=== PATIENT | female | born 1925 | race Caucasian/White ===

== ENCOUNTER 2016-07-04 10:16 | Emergency (ER) | payer OTHER ==
[2016-07-04 10:26] VITALS: BP 163/69
--- NOTE | 2016-07-04 11:00 | Diag Imaging Result Document ---
PROCEDURE NAME: KNEE 3 VIEWS LEFT - 07/04/2016 LEFT KNEE, 3 VIEWS: FINDINGS: There is some osteophyte formation laterally. There is also osteophyte formation in the medial femoral condyle and patellofemoral joint. There is subchondral cyst formation generally and there is some subsidence of the cortex anteriorly in the medial femoral condyle. IMPRESSION: Severe osteoarthritis.
[2016-07-04] MEDS ORDERED: NORCO-7.5 PO ONE (11:06)
--- NOTE | 2016-07-04 11:26 | PROVIDER DOCUMENTATION ---
HPI-Musculoskeletal Pain/Inj - GENERAL Chief Complaint: Fall Stated Complaint: FALL/EXTREMITY INJURY Time Seen by Provider: 07/04/16 10:28 Source: patient - HX OF PRESENT ILLNESS-MUSKULOSKELTAL Nature of Presenting Problem: Pt is 89 y/o F presents to the ED with post fall. Pt's daughter states Pt fell early this am due to losing balance. Pt's daughter states Pt can not walk due to pain. Pt's daughter denies F and chills for Pt. Quality of Pain: reports: aching Severity in ED: mild Onset/Duration: this morning Timing: still present Any recent injury?: Yes (fall) Locality of Occurance: Home Similar Symptoms Previously?: No Recently seen or treated by another doctor?: No - FALL INJURY Location of Pain/Injury: reports: lower extremity (L knee) Pain Radiation: reports: no radiation Reason for Fall: reports: lost balance Symptoms prior to fall:: reports: none Loss of Consciousness: no loss of consciousness Injury Associated Symptoms: reports: joint pain (L knee), unable to bear weight (L), weakness, trouble walking. denies: arm pain, back/neck pain, chest pain, diaphoresis, dizziness, headaches, muscle aches, nausea, puncture wound, shortness of breath, sensory/motor loss, snap/crack/pop sensation, pain with inspiration, vomiting Review of Systems - Adult - REVIEW OF SYSTEMS - ADULT Constitutional: denies: chills, fever Eyes: denies: blurred vision, double vision Ears, Nose, Mouth & Throat: denies: ear pain, nose pain, throat pain Cardiovascular: denies: chest pain, heart murmur, irregular heart rate Respiratory: denies: cough, shortness of breath, wheezing Gastrointestinal: denies: abdominal pain, diarrhea, nausea, vomiting Genitourinary: denies: dysuria, hematuria Musculoskeletal: reports: other (L knee pain). denies: bone pain, joint pain, neck pain Integumentary: denies: hives, itching Neurological: denies: dizziness/vertigo, headache/migraines Psychiatric: reports: no symptoms reported Endocrine: reports: no symptoms reported Hematologic/Lymphatic: reports: no symptoms reported Allergic/Immunologic: reports: no symptoms reported All Other Systems: Reviewed and Negative Past History - Adult - PAST MEDICAL HISTORY-ADULT Review of Records: reports: Nursing Assessment Review, Medications Reviewed, Social history reviewed & non-contributory. Major Childhood Illnesses: reports: denies history Cardiovascular: reports: CHF, HTN, pacemaker Respiratory: reports: denies history Gastrointestinal: reports: denies history Obstetrical/Gynecological: reports: denies history Genitourinary: reports: denies history Musculoskeletal: reports: denies history Neurological: reports: Alzheimer's, dementia Endocrine/Immune: reports: Diabetes, thyroid disorder Other Conditions: reports: denies history - PRIOR SURGERIES/PROCEDURES Surgical/Procedure History: reports: pacemaker, hysterectomy, other ( thyroidectomy) - IMMUNIZATION STATUS Childhood Immunizations: See Nurse Assessment Flu Vaccine: See Nurse Assessment - FAMILY HISTORY Family History: reviewed, not pertinent - SOCIAL HISTORY Smoking: quit greater than 1 year, cigarettes Substance Use: denies Living Situation: care facility Physical Exam-Injury Related - Physical Exam-Injury Related Initial Vital Signs Reviewed: Yes General Appearance: appears well, alert, no apparent distress Eyes: PERRL/EOMI, pink conjunctivae, fundi clear, no AV nicking Head, Ears, Nose, Mouth & Throat: normocephalic/atraumatic, moist mucous membranes, normal ENT inspection, TMs normal, pharynx normal Neck: non-tender, full range of motion, supple, normal inspection Respiratory: chest non-tender, lungs clear, normal breath sounds, no pleuratic chest pain, no respiratory distress, no accessory muscle use Cardiovascular: normal peripheral pulses, regular rate, rhythm, no edema, no gallop, no JVD, no murmur Peripheral Pulses: radial (R): 2+, radial (L): 2+, dorsalis-pedis (R): 2+, dorsalis-pedis (L): 2+ Abdominal Exam: normal bowel sounds, non tender, soft, no organomegaly, no pulsatile mass Lymphatic: no adenopathy Back Exam: normal inspection, no CVA tenderness, no vertebral tenderness Extremity: normal range of motion, non-tender, no pedal edema, no calf tenderness, swelling (L lower leg) Integumentary: normal color, warm/dry Neurologic: residential program director II-XII nml as tested, grossly normal, no motor/sensory deficits Psych/Mental Status: normal mood/affect, normal thought content, normal thought process, oriented x 3 Progress - PLAN OF CARE/RESULTS Progress/Plan/Lab Results: Orders Category Date Time Status Finger Stick Blood Sugar (ED) DIRECTED Care 07/04/16 11:06 Active KNEE 3 VIEWS LEFT [RAD] Stat Exams 07/04/16 10:29 Draft UA [URINALYSIS PL W/POSS RFLX CULT] [URINALYSIS] Stat Lab 07/04/16 11:06 Uncollected Hydrocodone/APAP 7.5 mg/325 mg [[place]-7.5] Med 07/04/16 11:06 Discontinued 1 each PO NOW ONE Venous U/S Left Leg [CV] Stat Ther 07/04/16 11:06 Ordered Vital Signs - 24 hr 07/04/16 10:22 Temperature 97.8 F Pulse Rate 66 Respiratory 18 Rate Blood Pressure 163/69 O2 Sat by Pulse 100 Oximetry Laboratory Tests 07/04/16 11:24 Urine Source CATH Urine Color YELLOW Urine Clarity CLEAR Urine pH 6.0 Ur Specific [place] 1.015 Urine Protein TRACE A Urine Ketones NEGATIVE Urine Blood NEGATIVE Urine Nitrite NEGATIVE Urine Bilirubin NEGATIVE Urine Urobilinogen NORMAL Urine Microscopic RBC Not Reportable Urine WBC NEGATIVE Ur Epithelial Cells <10 Urine Glucose NEGATIVE - XRAY 1 XRAY: Left XRAY Study: Knee Impression: Abnormal XRAY Interpretation: severe OA - ULTRASOUND (By Radiology) 1 US Study: other (L leg - Venous) Impression: Normal US Results: negative for DVT verbal from [facility] Departure - Departure Time of Disposition Order: 13:03 DIAGNOSIS: Edema of left lower extremity Left knee sprain Qualifiers: Encounter type: initial encounter Involved ligament of knee: unspecified ligament Qualified Code(s): S83.92XA - Sprain of unspecified site of left knee, initial encounter Disposition: HOME 01 Certified Medical Emergency: Emergent Condition: Stable Additional Instructions: ED Follow Up Instructions: You have been treated by a care provider in the Emergency Department. These instructions are being provided to you so you can have an understanding of how to care for yourself upon discharge. Upon discharge from the Emergency Department, you are responsible for making arrangements for follow-up care by a physician of your choice. Take all prescribed medications as directed. Return to the Emergency Department immediately for any new or worsening symptoms. You may call the Physician Referral phone number at [phone] to obtain a list of Physicians who are taking new patients. Referrals: Scottie Hawkins MD [Primary Care Provider] - Attestation - Scribe Verification/Attestation Scribe:: Joyce Baptiste Acting as Scribe for:: Hira George Scribe documention review:: This chart was documented by a scribe and accurately reflects the service the provider performed and the decisions made by the provider.
[2016-07-04 11:39] LABS: URINE CULTURE PL NEEDED? NO; URINE SOURCE CATH
[2016-07-04 11:51] LABS: BILIRUBIN URINE NEGATIVE (NEGATIVE); BLOOD URINE NEGATIVE (NEGATIVE); CLARITY CLEAR (CLEAR); COLOR YELLOW; GLUCOSE URINE NEGATIVE (NEGATIVE); LEUKOCYTES URINE NEGATIVE (NEGATIVE); NITRITE URINE NEGATIVE (NEGATIVE); PROTEIN URINE TRACE mg/dL (NEGATIVE); SP GRAVITY URINE 1.015; UROBILINOGEN URINE NORMAL
[2016-07-04 12:02] LABS: URINE EPITHELIAL CELLS <10 /HPF (<10)
--- NOTE | 2016-07-05 07:13 | Extremity Venous Study ---
PROCEDURE NAME: Venous U/S Left Leg - 07/04/2016 VENOUS ULTRASOUND OF THE LEFT LOWER EXTREMITY: FINDINGS: The deep veins of the left lower extremity are compressible and demonstrate normal color Doppler flow with augmentation. There are no thrombi demonstrated. No abnormal fluid collections are demonstrated. IMPRESSION: No evidence of deep venous thrombosis.
== END 2016-07-04 13:29 | disposition home or self-care (01) ==
LOC: P.ED 10:16
DX: S83.92XA Sprain of unspecified site of left knee, initial encounter (principal); R60.9 Edema, unspecified; M25.562 Pain in left knee; I50.9 Heart failure, unspecified; I10 Essential (primary) hypertension; E11.9 Type 2 diabetes mellitus without complications; E07.9 Disorder of thyroid, unspecified; Z95.0 Presence of cardiac pacemaker; Z79.899 Other long term (current) drug therapy; G30.9 Alzheimer's disease, unspecified; F02.80 Dementia in other diseases classified elsewhere, unspecified severity, without behavioral disturbance, psychotic disturbance, mood disturbance, and anxiety; Z87.891 Personal history of nicotine dependence; W19.XXXA Unspecified fall, initial encounter
CPT/HCPCS: 81001; 82948; 93971; 99284; P9612

== ENCOUNTER 2016-08-27 16:24 | Inpatient (IN) ==
[2016-08-27 17:07] LABS: UR AMPHETAMINES QUAL NONE DETECTED (NONE DETECT); UR BARBITUATES QUAL NONE DETECTED (NONE DETECT); UR BENZODIAZEPIN QUAL NONE DETECTED (NONE DETECT); UR CANNABINOIDS QUAL NONE DETECTED (NONE DETECT); UR COCAINE QUAL NONE DETECTED (NONE DETECT); UR MDMA QUAL NONE DETECTED (NONE DETECT); UR METHADONE QUAL NONE DETECTED (NONE DETECT); UR METHAMPHETAMINE QUAL NONE DETECTED (NONE DETECT); UR OPIATES QUAL NONE DETECTED (NONE DETECT); UR OXYCODONE QUAL NONE DETECTED (NONE DETECT); UR PCP QUAL NONE DETECTED (NONE DETECT); UR TCA QUAL NONE DETECTED (NONE DETECT)
--- NOTE | 2016-08-27 17:07 | EKG Report ---
Test Performed on : 08/27/2016 4:53:13 PM Test Reason : med clearance Blood Pressure : / mmHG Vent. Rate : 065 BPM Atrial Rate : 065 BPM P-R Int : 160 ms QRS Dur : 084 ms QT Int : 422 ms P-R-T Axes : 081 044 019 degrees QTc Int : 438 ms Atrial-paced rhythm in a pattern of bigeminy. Septal infarct (cited on or before 16-OCT-2010) Abnormal ECG When compared with ECG of 16-OCT-2010 11:24, No significant change was found Unconfirmed Result
[2016-08-27 17:15] LABS: BILIRUBIN URINE 1+ (NEGATIVE); BLOOD URINE 1+ (NEGATIVE); CLARITY VERY CLOUDY (CLEAR); COLOR YELLOW; GLUCOSE URINE NEGATIVE (NEGATIVE); LEUKOCYTES URINE 2+ (NEGATIVE); NITRITE URINE POSITIVE (NEGATIVE); PROTEIN URINE 2+(100 mg/dL) mg/dL (NEGATIVE); URINE WBC TNTC /HPF (<10); UROBILINOGEN URINE 1+(1 mg/dL)
[2016-08-27 17:16] LABS: URINE CAST NONE SEEN /LPF; URINE CRYSTAL NONE SEEN /HPF; URINE CULTURE PL NEEDED? YES; URINE EPITHELIAL CELLS >10 /HPF (<10); URINE SOURCE CLEAN CATCH
[2016-08-27 17:35] LABS: MANUAL DIFF NEEDED? NO
[2016-08-27 17:40] LABS: BASO% 0.7 % (0.0-0.8); EOS# 0.11 X1000 (0.0-0.7); EOS% 1.6 % (0.0-10.0); HEMATOCRIT 42.2 % (37.0-47.0); HEMOGLOBIN 14.1 g/dL (12.0-16.0); IMM GRAN# 0.02 X1000 (0.0-0.04); IMM GRAN% 0.3 % (0.0-0.5); LYMPH# 1.77 X1000 (1.2-3.4); LYMPH% 25.3 % (20.5-51.1); MCH 30.9 PG (27-31); MCHC 33.4 g/dL (33-37); MCV 92.5 FL (81-99); MONO# 0.57 X1000 (0.11-0.59); MONO% 8.2 % (1.7-9.3); MPV 13.3 FL (7.4-10.4); NEUT% 63.9 % (42.2-75.2); PLT 135 X1000 (130-400); RBC 4.56 XMIL (4.2-5.4)
[2016-08-27 18:04] LABS: ALBUMIN 4.1 g/dL (3.5-5.0); CALCIUM 9.1 mg/dL (8.8-10.2); POTASSIUM 4.2 mmol/L (3.5-5.1); TOTAL BILIRUBIN 0.7 mg/dL (0.20-1.00); TOTAL PROTEIN 7.5 g/dL (6.3-8.3)
[2016-08-27] MEDS ORDERED: NS 1,000 ML IV ONE (20:30)
[2016-08-27] MEDS ORDERED: LIBRIUM PO ONE (20:30)
[2016-08-28] MEDS ORDERED: ZOFRAN IV PRN (06:49)
[2016-08-28] MEDS: ROCEPHIN 1 GM/NS 1 GM/50 ML IVPB IV SCH (09:19)
[2016-08-28] MEDS: LIBRIUM PO SCH ×3 (09:20→21:17)
[2016-08-28] MEDS: M.V.I.-12 10 ML, FOLIC ACID 1 MG, MAGNESIUM SULFATE 1 GM, THIAMINE 100 MG in NS 1,000 ML IV SCH (09:20)
[2016-08-28] MEDS: NS 1,000 ML IV SCH ×2 (09:24→11:28)
--- NOTE | 2016-08-28 11:04 | PROGRESS NOTE ---
DATE: 08/28/2016 SUBJECTIVE: Patient is confused, disoriented this morning. She is not sure why she is in the hospital. She would like to talk to whoever put her "in this place." States "I am most disappointed." PHYSICAL: Vital Signs: Temperature 97.8, pulse 68, respiratory rate 20, BP 154/78 to 107/69, saturations 100% on room air. General: Patient is awake, alert, oriented. She is currently in no real respiratory distress. Speech is regular. Unfortunately, she has extremely poor hearing. She has difficulty answering questions, which is felt to be most likely secondary to not hearing the question. However, she is awake, alert, but confused, disoriented. Neck: Supple. CV: Regular rate. Chest: Relatively clear. Abdomen: Soft. Extremities: Moves all extremities. Neurologic: No changes. LABS: Urine culture grew gram-negative rods. ASSESSMENT: 1. Urinary tract infection with gram-negative rods. 2. Metabolic encephalopathy secondary to urinary tract infection. 3. Hypothyroidism, TSH 4.7. 4. Mild chronic renal failure. Unchanged from March 2015. 5. Chronic history of dementia. 6. History of alcoholism. PLAN: We will place patient on a very low dose of Librium taper. Uncertain of how much she actually does drink. The family seems recalcitrant in admitting to the full amount of her alcoholism. We will place her on 25 mg Librium 3 times a day in an attempt to prevent withdrawal. We will continue to wean down from there. We will place her on Rocephin as she is growing gram- negative rods in her urine. We will continue to follow. Further orders as needed. cc: Scottie Hawkins MD
[2016-08-28] MEDS: TYLENOL PO PRN ×2 (16:48→23:59)
[2016-08-28] MEDS: SEROQUEL PO SCH (21:17)
[2016-08-29] MEDS: NS 1,000 ML IV SCH ×2 (02:05→23:53)
[2016-08-29] MEDS ORDERED: CALMOSEPTINE OINTMENT TOP PRN (04:11)
[2016-08-29] MEDS: LIBRIUM PO SCH ×3 (04:27→20:34)
[2016-08-29] MEDS: ROCEPHIN 1 GM/NS 1 GM/50 ML IVPB IV SCH (06:34)
[2016-08-29] MEDS: PRINIVIL PO SCH (08:05)
--- NOTE | 2016-08-29 08:37 | PROGRESS NOTE ---
DATE: 08/29/2016 SUBJECTIVE: The patient is still confused at times. States she does not want to stay in the hospital any longer. Denies any chest pain, palpitations. OBJECTIVE: Vital Signs: Reviewed. Temperature 98 degrees, pulse 64, respiratory rate 18, BP 185/69 to 193/78. General: Patient is awake, alert. She is currently in no respiratory distress. Neck: Supple. CV: Regular rate. Chest: Relatively clear. Abdomen: Soft. Extremities: Moves all extremities. Neurologic: No changes. LABS: Reviewed. ASSESSMENT: 1. Urinary tract infection with gram-negative rods. Continue Rocephin. 2. Metabolic encephalopathy secondary to urinary tract infection. 3. Chronic dementia. 4. Chronic alcoholism. We will continue to wean her Librium. Hopefully she can transition to [place] in the next day or two. 5. Hypertension. Will add lisinopril. 6. Further orders as needed. cc: Scottie Hawkins MD
[2016-08-29] MEDS: M.V.I.-12 10 ML, FOLIC ACID 1 MG, MAGNESIUM SULFATE 1 GM, THIAMINE 100 MG in NS 1,000 ML IV SCH (09:19)
[2016-08-29] MEDS: SEROQUEL PO SCH (20:34)
[2016-08-30] MEDS: ROCEPHIN 1 GM/NS 1 GM/50 ML IVPB IV SCH (06:28)
[2016-08-30] MEDS: LIBRIUM PO SCH ×3 (08:51→23:44)
[2016-08-30] MEDS: M.V.I.-12 10 ML, FOLIC ACID 1 MG, MAGNESIUM SULFATE 1 GM, THIAMINE 100 MG in NS 1,000 ML IV SCH (09:28)
[2016-08-30] MEDS: SEPTRA DS PO SCH ×2 (09:29→20:30)
[2016-08-30] MEDS: PRINIVIL PO SCH (09:30)
[2016-08-30] MEDS: DIFLUCAN PO SCH (09:30)
[2016-08-30] MEDS: NS 1,000 ML IV SCH (12:54)
[2016-08-30] MEDS ORDERED: HALDOL IV PRN (19:44)
[2016-08-30] MEDS ORDERED: BENADRYL IV PRN (19:46)
[2016-08-30] MEDS: SEROQUEL PO SCH (20:30)
[2016-08-31] MEDS: NS 1,000 ML IV SCH ×2 (02:21→14:57)
[2016-08-31] MEDS: M.V.I.-12 10 ML, FOLIC ACID 1 MG, MAGNESIUM SULFATE 1 GM, THIAMINE 100 MG in NS 1,000 ML IV SCH (09:34)
[2016-08-31] MEDS ORDERED: PRINIVIL PO SCH (09:37)
[2016-08-31] MEDS: LIBRIUM PO SCH ×2 (09:38→15:01)
[2016-08-31] MEDS: DIFLUCAN PO SCH (10:26)
[2016-08-31] MEDS: SEPTRA DS PO SCH (10:26)
--- NOTE | 2016-08-31 10:30 | DISCHARGE SUMMARY ---
ADMISSION DATE: 08/27/2016 DISCHARGE DATE: 08/31/2016 DISCHARGE DIAGNOSES: 1. Metabolic encephalopathy, secondary to urinary tract infection. 2. Hypothyroidism 3. Hypertension. We will continue to increase her lisinopril. We will place her on 20 mg daily starting today. 4. Chronic Alzheimer's type dementia. 5. Urinary tract infection, Escherichia coli, pansensitive. 6. Hypothyroidism. CONSULTATIONS: None. PROCEDURE: None. HOSPITAL COURSE: Patient is an 89-year-old female who was admitted as on the [facility]. Mental status actually did not change while she was in the hospital. She is still awake and alert but confused, very poor hearing. She has had no improvement in her memory. She does have a urinary tract infection that is pansensitive. We will place her on Bactrim and we will continue. Her blood pressure was increased to 20 mg once a day. Further orders as needed. DISCHARGE MEDICATIONS: She will continue on her Aricept 10 mg a day. Continue on her Synthroid, Bystolic 2.5 mg daily, Prilosec 10 mg daily with the addition of lisinopril. She will continue Bactrim for another 5 days. Further orders as needed. TIME SPENT: Thirty-five minutes was spent in discharge planning. cc: Scottie Hawkins MD
--- NOTE | 2016-08-31 10:30 | PROGRESS NOTE ---
DATE: 08/30/2016 SUBJECTIVE: The patient is agitated this morning. She is confused. She is not sure why she is here or, in fact, actually where here is. States that she is ready to go home. OBJECTIVE: Vital Signs: Reviewed. She is afebrile. Pulse rate 70, respiratory 20, BP 175 systolic. General: Patient is awake, alert. She is currently in no distress. Memory is very poor. HEENT: Normocephalic, atraumatic. LEEANNA. Neck: Supple. CV: Regular rate. Chest: Relatively clear. Abdomen: Soft. Neurologic: No changes. ASSESSMENT: 1. Urinary tract infection, Escherichia coli sensitive, rebollar-sensitive. 2. Metabolic acidosis secondary to urinary tract infection. 3. Dementia. 4. Hypertension. 5. Hypothyroidism. PLAN: Will continue patient in the hospital today. We will continue antibiotics. Hopefully to rehab in the next day or two. We will continue to wean her Librium. Further orders as needed. cc: Scottie Hawkins MD
[2016-08-31] MEDS: PRINIVIL PO SCH (10:33)
--- NOTE | 2016-08-31 11:09 | HISTORY AND PHYSICAL ---
CHIEF COMPLAINT: Altered mental status. HISTORY OF PRESENT ILLNESS: The patient is an 89-year-old female who has a known history of some dementia. She has been living in assisted living and her daughter goes by and helps care for her. The assisted living notes that she has been walking through the halls and has been confused, disoriented, and has been trying to get outside and has gotten lost. She has not been taking her medications appropriately for the past 2-3 days. ALLERGIES: Erythromycin and penicillin; both listed as anaphylaxis. MEDICATIONS: Norvasc 5 mg, Aricept 10 mg, Lasix 40 mg b.i.d., Prilosec 40 mg, vitamin B12, Synthroid 75 mcg, and Bystolic 2.5 mg. PAST MEDICAL HISTORY: Dementia, hypertension, reflux, and hypothyroidism. REVIEW OF SYSTEMS: Essentially unobtainable from Ms. Hernandez secondary to her acute mental status change. However, the staff has reported that she is confused, disoriented, and she has been talking about dying. Denies any known fevers or chills. Denies any known GI or issues. PAST SURGICAL HISTORY: Appendectomy, hysterectomy, thyroidectomy, and a pacemaker placement. FAMILY HISTORY: Noncontributory. SOCIAL HISTORY: The patient currently lives in assisted living. She no longer smokes. She does drink alcohol occasionally. PHYSICAL EXAMINATION: VITAL SIGNS: Vital signs were reviewed. Temperature is 97, pulse 75, respiratory rate 18, BP 160/85, and saturation 98% on room air. GENERAL: The patient is awake and alert. She is currently in no respiratory distress. HEENT: Normocephalic, atraumatic. The patient is extremely difficult of hearing. PERRL. NECK: Supple. CARDIOVASCULAR: Regular rate. RESPIRATORY: The chest is relatively clear. No wheezing. No crackles. GASTROINTESTINAL: The abdomen is soft and nondistended. EXTREMITIES: Moves all extremities. NEUROLOGICAL: No changes in the previous exams. LABORATORY DATA: WBC is 6, hemoglobin 14, and hematocrit 42. UA is with 2+ WBCs and too numerous to count microscopic WBCs. EKG: Atrial paced rhythm with bigeminy. ASSESSMENT: 1. Urinary tract infection. 2. Acute metabolic encephalopathy. 3. Hypertension. 4. Dementia. 5. Hypothyroidism. 6. Others. PLAN: We will admit the patient to the hospital, treat her for the UTI, and continued to follow. Consult [facility] when she is improved. Further orders as needed. cc: Scottie Hawkins MD
--- NOTE | 2016-08-31 12:22 | Diag Imaging Result Document ---
PROCEDURE NAME: CHEST-PORTABLE - 08/31/2016 PORTABLE CHEST: COMPARISON: 04/04/2015. FINDINGS: The lungs are well expanded. There is a left-sided pacemaker. The heart is not enlarged. The vessels are not distended. No pneumonia. No pleural effusions identified. IMPRESSION: Stable chest.
[2016-08-31 15:13] VITALS: BP 179/65
[2016-09-01] MEDS ORDERED: SYNTHROID PO SCH (07:00)
[2016-09-01] MEDS ORDERED: PRILOSEC PO SCH (07:00)
[2016-09-01] MEDS ORDERED: ARICEPT PO SCH (09:00)
[2016-09-01] MEDS ORDERED: BYSTOLIC PO SCH (09:00)
--- NOTE | 2016-09-04 10:06 | PROVIDER DOCUMENTATION ---
This chart was entered by Joyce Baptiste Scribe, acting as scribe for Braxton Borrego MD. HPI-Psychological Disorder - General Chief Complaint: Psych Stated Complaint: AMS/SUICIDAL Time Seen by Provider: 08/27/16 16:43 Source: patient Allergies/Adverse Reactions: Patient Allergies Allergy/AdvReac Type Severity Reaction Status Date / Time erythromycin base Allergy ANAPHYLAXIS Verified 09/02/16 15:25 Penicillins AdvReac ANAPHYLAXIS Verified 09/02/16 15:25 Home Medications: Home Medication List Medication Instructions Recorded Confirmed Last Taken Type Donepezil [Aricept] 10 mg PO DAILY 03/25/15 09/02/16 09/02/16 09:00 History Omeprazole [Prilosec] 40 mg PO DAILY 03/25/15 09/02/16 09/01/16 09:00 History Levothyroxine Sodium 75 mcg PO DAILY 12/27/15 09/02/16 09/01/16 21:00 History Nebivolol HCl [Bystolic] 2.5 mg PO DAILY 12/27/15 09/02/16 09/02/16 09:00 History Chlordiazepoxide [Librium] 25 mg PO Q12H PRN #20 capsule 08/30/16 09/02/1609/01 Rx Fluconazole [Diflucan] 100 mg PO DAILY #10 tablet 08/30/16 09/02/16 09/02/16 09: 00 Rx Sulfamethoxazole/Tmp D.s. [Septra 1 each PO BID #10 tablet 08/30/16 09/02/16 21:00 Rx Ds] Furosemide 20 mg PO DAILY #0 08/31/16 09/02/16 09/02/16 09:00 Rx LISINOpril [Prinivil] 20 mg PO DAILY tablet 08/31/16 09/02/16 09/02/16 09:00 Rx - History of Present Illness-Psych Nature of Presenting Problem: Pt is 89 y/o F presents to the ED with psych evaluation. Pt's daughter states Pt has been agitated, confused and having SI. Pt's daughter states symptoms have increased within the past 3 days. Pt denies HI. Onset/Duration: reports: 3 days ago Timing: reports: still present Severity: reports: moderate Situational problems related to:: reports: N/A Psychiatric Complaints: reports: agitated, confused, suicidal ideation. denies : angry, altered mental status, anxiety, depressed, frustrated, hallucinating, hostile, homicidal thoughts, impaired concentration, ingestion, injury, insomnia , irritability, paranoid, , rapid pulse, restlessness, tremor Substance Use: reports: none/never Previous psych related hospitalizations?: No Patient arrived by:: private car Similar Symptoms Previously?: Yes Recently seen or treated by another doctor?: No Review of Systems - Adult - REVIEW OF SYSTEMS - ADULT Constitutional: reports: no symptoms reported Eyes: reports: no symptoms reported Ears, Nose, Mouth & Throat: reports: no symptoms reported Cardiovascular: reports: no symptoms reported Respiratory: reports: no symptoms reported Gastrointestinal: reports: no symptoms reported Genitourinary: reports: no symptoms reported Musculoskeletal: reports: no symptoms reported Integumentary: reports: no symptoms reported Neurological: reports: no symptoms reported Psychiatric: reports: suicidal thoughts. denies: anxiety, depression Endocrine: reports: no symptoms reported Hematologic/Lymphatic: reports: no symptoms reported Allergic/Immunologic: reports: no symptoms reported All Other Systems: Reviewed and Negative Past History - Adult - PAST MEDICAL HISTORY-ADULT Review of Records: reports: Nursing Assessment Review, Medications Reviewed, Social history reviewed & non-contributory. Major Childhood Illnesses: reports: denies history Cardiovascular: reports: CHF, HTN, pacemaker Respiratory: reports: asthma Gastrointestinal: reports: denies history Obstetrical/Gynecological: reports: denies history Genitourinary: reports: denies history Musculoskeletal: reports: denies history Neurological: reports: Alzheimer's, dementia Endocrine/Immune: reports: Diabetes, thyroid disorder Other Conditions: reports: denies history - PRIOR SURGERIES/PROCEDURES Surgical/Procedure History: reports: appendectomy, pacemaker, hysterectomy, other (thyroidectomy) - IMMUNIZATION STATUS Childhood Immunizations: See Nurse Assessment Flu Vaccine: See Nurse Assessment - FAMILY HISTORY Family History: reviewed, not pertinent - SOCIAL HISTORY Smoking: denies Substance Use: denies Living Situation: family Physical Exam-Psych Focus - Physical Exam-Psych Initial Vital Signs Reviewed: Yes Appearance: appropriate appearance, appropriate insight, neat, no apparent distress, no memory impairment, alert Neurological: alert, normal mood/affect, calm, visitor services assistant II-XII nml as tested, oriented x 3 Behavior/Eye Contact/Speech: cooperative, good eye contact, normal speech Thoughts/Hallucinations: normal thought pattern, no apparent hallucination HENMT: normocephalic/atraumatic, moist mucous membranes, normal ENT inspection, TMs normal, pharynx normal Neck: non-tender, full range of motion, supple, normal inspection Respiratory: chest non-tender, lungs clear, normal breath sounds, no pleuratic chest pain, no respiratory distress, no accessory muscle use Cardiovascular: normal peripheral pulses, regular rate, rhythm, no edema, no gallop, no JVD, no murmur Abdominal Exam: normal bowel sounds, non tender, soft, no organomegaly, no pulsatile mass Lymphatic: no adenopathy Back Exam: normal inspection, no CVA tenderness, no vertebral tenderness Extremity: normal range of motion, non-tender, normal gait, normal inspection, no pedal edema, no calf tenderness, normal capillary refill Integumentary: normal color, normal turgor, warm/dry Progress - PLAN OF CARE/RESULTS Progress/Plan/Lab Results: Orders Category Date Time Status Admit - [facility] Routine AdmDCTranf 08/27/16 20:30 Ordered Activity - Bed Rest with BRP ORDERED Care 08/27/16 20:30 Active Vital Signs Order Q 4-HR ASSESS Care 08/27/16 20:30 Active Heart Healthy Diet Diet 08/27/16 20:33 Completed Regular Diet Diet 08/27/16 20:36 Completed CBC WITH DIFF [HEME] Stat Lab 08/27/16 17:20 Completed COMPREHENSIVE METABOLIC PANEL [CHEM] Stat Lab 08/27/16 17:20 Completed ETOH [ALCOHOL BLOOD] Stat Lab 08/27/16 17:20 Completed MAGNESIUM [CHEM] Stat Lab 08/27/16 17:20 Completed TSH Stat Lab 08/27/16 17:[address] W/POSS RFLX CULT [URINALYSIS] Stat Lab 08/27/16 17:07 Completed URINE CULTURE [RM] Routine Lab 08/27/16 17:16 Com[address]INE DRUG SCREEN PL Stat Lab 08/27/16 17:06 Completed VITAMIN B12 Stat Lab 08/27/16 17:20 Completed 0.9% Sodium Chloride Inj [Ns] 1,000 ml Med 08/27/16 20:30 Discontinued IV 100 mls/hr Chlordiazepoxide [Librium] Med 08/27/16 20:30 Discontinued 25 mg PO NOW ONE Mvi [M.v.i.-12] 10 ml Med 08/28/16 09:00 Discontinued Folic Acid 1 mg Magnesium Sulfate 1 gm Thiamine 100 mg 0.9% Sodium Chloride Inj [Ns] 1,000 ml IV Q24H EKG [EKG] Stat Ther 08/27/16 16:34 Draft Transfer/Admit Order [TRANSFER] Routine Transfer 08/27/16 20:38 Completed Result Diagrams: 08/27/16 17:20 08/27/16 17:20 - EKG 1 Time of EKG reading by physician:: 16:53 EKG Read and Signed by:: Braxton Borrego EKG Interpretation (*Must complete 3 of following elements*): Abnormal Rate: 65 Rhythm: atrial-paced rhythm in a pattern of bigeminy Comments: septal infarct, age undetermined - CHANGE OF SHIFT REPORT (ED Provider) Report Given and Care Transferred to:: Dr. Pizano Time of Transfer: 17:50 Items Pending: Labs Departure - Departure Time of Disposition Decision: 10:05 DIAGNOSIS: Suicidal ideation Disposition: ADMITTED INPATIENT 09 Certified Medical Emergency: Emergent Condition: Stable - Critical Care Note This patient required my direct & personal management of CC.: No This chart was documented by the indicated scribe, (Joyce Baptiste Scribe) and accurately reflects the services I performed and decisions made by me, Braxton Borrego MD, as attested by the provider's signature.
== END 2016-08-31 15:25 ==
LOC: P.ED 16:24 → P.MEDSURG 21:45 → SUATTDRO 21:45
PROVIDERS: ADMIT Family Medicine; ATTEND Family Medicine